=== PATIENT | female | born 1990 | race Caucasian/White ===

== ENCOUNTER 2017-10-05 21:28 | Inpatient (IN) | payer OTHER ==
[~2017-10-05] VITALS: Ht 170.2 cm; Wt 65.8 kg
[2017-10-05 22:08] LABS: ABSOLUTE BASOPHIL COUNT 0 /CUMM (0.0-0.2); ABSOLUTE EOSINOPHIL COUNT 0 /CUMM (0.0-0.7); ABSOLUTE GRANULOCYTE CT 11.3 /CUMM (1.4-6.5); ABSOLUTE LYMPH COUNT 2.2 /CUMM (1.2-3.4); ABSOLUTE MONOCYTE COUNT 0.7 /CUMM (0.10-0.60); BASOPHIL % 0.1 % (0.0-2.0); EOSINOPHIL % 0.2 % (0-5); HEMATOCRIT 39.3 % (37-47); MEAN CORPUSCULAR HGB 31.5 PG (27.0-31.0); MEAN CORPUSCULAR HGB CONC 33.5 G/DL (33.0-37.0); MEAN CORPUSCULAR VOLUME 94.1 FL (81.0-99.0); MEAN PLATELET VOLUME 8.3 FL (7.4-10.4); PLATELET COUNT 244 /CUMM (130-400); RBC DISTRIBUTION WIDTH 13.5 % (11.5-14.5); RED BLOOD CELL CT 4.18 /CUMM (4.20-5.40); WHITE BLOOD CELL COUNT 14.3 /CUMM (4.8-10.8)
[2017-10-05 22:09] LABS: GRANULOCYTE % 79.1 % (42.2-75.2)
--- NOTE | 2017-10-06 00:03 | History & Physical ---
General Information and HPI MD Statement: I have seen and personally examined MARK SIMMONS and documented this H&P. Source of Information: patient, old records Exam Limitations: no limitations History of Present Illness: The patient is a 27 year old at 40 weeks and 0 days gestation who presented with a chief complaint of PAINFUL CTX. No lof / vb. +FM. AP care uncomplicated. GBS neg. Allergies/Medications Allergies: Uncoded Allergies: TREE NUTS (Intermediate, HIVES 06/01/12) Compliance With Home Meds: GOOD Past History studio model History : 1 Para: 0 Last Menstrual Period: 12/29/16 Estimated Delivery Date: 10/05/17 Past studio model History: none Medical History Gastrointestinal: colitis (no meds) PHYSICIAN OFFICE ASSISTANT/Reproductive: irreg menses, conceived w/ clomid Surgical History Pertinent Surgical History: I&D vulvar abscess Past Family/Social History Psychosocial History Smoking Status: Never Smoked Exam & Diagnostic Data Obstetric Exam Wgt Gained During : 25 lb Pelvimetry: adequate Dilation (cm): 8 Effacement (%): 100 Station: 0 Membranes: intact Fluid: unknown Fundal Height (cm): 39 Multiple Gestation? No Contractions: q2-3 #1 - FHR Baseline: 130 Category: 1 Estimated Weight: 3400 Presentation: vtx Patient for Induction? No Physical Exam: nad abd soft nt gravid ext nt no ed Labs Blood Type & Rh: B pos Antibody Screen: neg Hct/Hgb & Platelets #1: 13.5/ 40, 335 Hct/Hgb & Platelets #2: 11.9/ 36.3, 277 Rubella: imm VDRL #1: neg VDRL #2: neg HbsAg: neg HIV #1: neg HIV #2 neg 1 Hr P Group B Strep: neg Initial Ultrasound: 02/24/17 siup 8+1 cwd Anatomy Ultrasound: 05/16/17 nl francis Ultrasound for EFW: 09/22/17 38% Genetic Testing: counsyl wnl Last 24 Hrs of Labs/Ye: Laboratory Tests 10/05/172146: CBC w Diff NO MAN DIFF REQ, RBC 4.18 L, MCV 94.1, MCH 31.5 H, MCHC 33.5, RDW 13.5, MPV 8.3, Gran % 79.1 H, Lymphocytes % 15.4 L, Monocytes % 5.2, Eosinophils % 0.2, Basophils % 0.1, Absolute Granulocytes 11.3 H, Absolute Lymphocytes 2.2, Absolute Monocytes 0.7 H, Absolute Eosinophils 0, Absolute Basophils 0, Urine Color PINK H, Urine Clarity CLDY H, Urine pH 7.0, Ur Specific [place] 1.015, Urine Protein 30 H, Urine Ketones NEG, Urine Nitrite NEG, Urine Bilirubin NEG, Urine Urobilinogen 0.2, Ur Leukocyte Esterase MOD H, Ur Microscopic SEDIMENT EXAMINED, Urine RBC PACKD H, Urine WBC 5-10 H, Ur Epithelial Cells MOD H, Urine Bacteria FEW H, Urine Mucus RARE, Urine Hemoglobin LARGE H, Urine Glucose NEG Assessment/Plan Assessment/Plan: 27yo P0 40 wks active labor, gbs neg, intact, and maternal status reassuring. Admit, expectant mgmt, ANSVD. As Ranked By This Provider Problem List: 1. Core Measures Venous Thromboembolism VTE Risk Factors / No Mechanical VTE Prophylaxis d/t Early Ambulation No VTE Pharm Prophylaxis d/t LowRisk-No Interven Req'd Attending MD Review Statement Attending Statement Attending MD Statement: examined this patient, discussed with family, discussed w/nursing
--- NOTE | 2017-10-06 00:08 | Labor & Delivery Summary ---
Delivery Summary Vaginal Delivery: Vaginal: spontaneous Episiotomy/Lacerations: Episiotomy/Lacerations: lac Type: rt labial Repair: 2-0 wyatt Anesthesia: nesicaine Placenta: Placenta: spontanteous, normal, 3 vessel Anesthesia: none Baby's Weight: 6#6 Apgars - 1 Min: 9 Apgars - 5 Min: 9 Additional Comments: Pt FD/+3 and pushing w/o epidural. Controlled of live female, apg 12/18. Head del over intact perineum from PRASHANTH. Body del w/o difficulty and baby to mom's chest. Cord clamped and cut by dad. Spont cry noted. Bulb suctioned. 3vc plac del spont intact. Rt labial lacs repaired 2-0 wyatt and local. Good hemostasis. Fundus contracted. EBL 250cc. Pt michael well.
[2017-10-06] MEDS ORDERED: IBUPROFEN800 M1 PO (08:34)
[2017-10-06 09:55] LABS: ABSOLUTE BASOPHIL COUNT 0.1 /CUMM (0.0-0.2); ABSOLUTE EOSINOPHIL COUNT 0 /CUMM (0.0-0.7); ABSOLUTE GRANULOCYTE CT 12.1 /CUMM (1.4-6.5); ABSOLUTE LYMPH COUNT 1.7 /CUMM (1.2-3.4); ABSOLUTE MONOCYTE COUNT 0.7 /CUMM (0.10-0.60); BASOPHIL % 0.4 % (0.0-2.0); EOSINOPHIL % 0.1 % (0-5); HEMATOCRIT 36.9 % (37-47); MEAN CORPUSCULAR HGB 32.2 PG (27.0-31.0); MEAN CORPUSCULAR HGB CONC 34.5 G/DL (33.0-37.0); MEAN CORPUSCULAR VOLUME 93.3 FL (81.0-99.0); MEAN PLATELET VOLUME 8.2 FL (7.4-10.4); PLATELET COUNT 197 /CUMM (130-400); RBC DISTRIBUTION WIDTH 13.2 % (11.5-14.5); RED BLOOD CELL CT 3.95 /CUMM (4.20-5.40); WHITE BLOOD CELL COUNT 14.6 /CUMM (4.8-10.8)
[2017-10-06 10:21] LABS: GRANULOCYTE % 83.1 % (42.2-75.2)
--- NOTE | 2017-10-06 14:32 | PN- Post Delivery/GYN ---
Subjective Subjective: Feeling well . Denies pain or cramps. Mild lochia rubra. +void. Successful latching, nursing today. Review of Systems: No [place], fever, dizziness, congestion, sore throat, blurred vision, breast pain, cough, SOB, palpitations, chest pain, abd. pain, N&V, diarrhea, dysuria, urgency to void, asymmetrical or unusual edema, numbness, or sadness. Objective Last 24 Hrs of Vital Signs/I&O Intake & Output 10/06 1600 10/06 0800 10/06 0000 Intake Total Output Total Balance Patient 145 lb Weight Physical Exam: Skin - warm and dry Neck - supple Breasts - not engorged Abd - soft, NT, no CVAT Fundus - firm, NT Perineum - dry Extr - benign Current Medications: Current Medications Sig/Jeremiah Start time Last Medication Dose Route Stop Time Status Admin Acetaminophen 650 MG Q4P PRN 10/06 0015 AC PO Chloroprocaine HCl 30 ML ONCE ONE 10/06 0015 DC 10/06 SC 10/06 0016 0107 Chloroprocaine HCl 30 ML .STK-MED ONE 10/05 2227 DC IV 10/05 2228 Docusate Sodium 100 MG BID PRN 10/06 0015 AC PO Ibuprofen 800 MG Q6P PRN 10/06 0015 AC 10/06 PO 1227 Lactated Ringer's 1,000 ML Q8H 10/05 2145 AC 10/05 IV 2259 Oxycodone/ 1 TAB Q3P PRN 10/06 0015 AC Acetaminophen PO Oxytocin 20 UNITS Q5H 10/06 0015 DC 10/05 Lactated Ringer's 1,000 ML IV 10/06 0514 2325 Oxytocin 20 UNITS .STK-MED ONE 10/05 2226 DC IV 10/05 2227 Senna 374 MG AT BEDTIME NEED.. 10/06 0015 AC PO Last 24 Hrs of Labs/Ye: Laboratory Tests 10/06/17 0925: CBC w Diff NO MAN DIFF REQ, RBC 3.95 L, MCV 93.3, MCH 32.2 H, MCHC 34.5, RDW 13.2, MPV 8.2, Gran % 83.1 H, Lymphocytes % 11.3 L, Monocytes % 5.1, Eosinophils % 0.1, Basophils % 0.4, Absolute Granulocytes 12.1 H, Absolute Lymphocytes 1.7, Absolute Monocytes 0.7 H, Absolute Eosinophils 0, Absolute Basophils 0.1 10/05/172146: CBC w Diff NO MAN DIFF REQ, RBC 4.18 L, MCV 94.1, MCH 31.5 H, MCHC 33.5, RDW 13.5, MPV 8.3, Gran % 79.1 H, Lymphocytes % 15.4 L, Monocytes % 5.2, Eosinophils % 0.2, Basophils % 0.1, Absolute Granulocytes 11.3 H, Absolute Lymphocytes 2.2, Absolute Monocytes 0.7 H, Absolute Eosinophils 0, Absolute Basophils 0, Urine Color PINK H, Urine Clarity CLDY H, Urine pH 7.0, Ur Specific [place] 1.015, Urine Protein 30 H, Urine Ketones NEG, Urine Nitrite NEG, Urine Bilirubin NEG, Urine Urobilinogen 0.2, Ur Leukocyte Esterase MOD H, Ur Microscopic SEDIMENT EXAMINED, Urine RBC PACKD H, Urine WBC 5-10 H, Ur Epithelial Cells MOD H, Urine Bacteria FEW H, Urine Mucus RARE, Urine Hemoglobin LARGE H, Urine Glucose NEG Assessment/Plan Assessment/Plan Recovering well s/p rapid delivery for a primipara. Continue care. Anticipate discharge in am. Problem List: 1. state 2. Mother currently breast-feeding Attending MD Review Statement Attending Statement Attending MD Statement: examined this patient, discussed with family, reviewed EMR data (avail)
--- NOTE | 2017-10-07 08:56 | PN- OBGYN ---
Surgical Brief Attending Note Brief Attending Note: PPD#2 pt is doing well, o complaints, tolerate diet, void without difficulties. ambulating well PE: VSS CV RRR lungs CTA B/L Abdomen: soft, nontender, uterus firm , fundus below umbilicus. Ext: DCT (-) A/P: 27yo, s/p , PPD #2 1. encourage ambualtion and 2. RT PP care 3. will d/c home, f/u in office in 2 wks and 6 wks. discharge instructions given.
== END 2017-10-07 11:00 | DRG 775 ==
LOC: CBCO 21:28 → GNO 21:43
PROVIDERS: Obstetrics & Gynecology
PROC: 10E0XZZ Delivery of Products of Conception, External Approach (ICD-10-PCS; principal; 2017-10-05)
DX: O70.0 First degree perineal laceration during delivery (principal); Z3A.40 40 weeks gestation of pregnancy; Z37.0 Single live birth
CPT/HCPCS: GNOP; GNOS; 81001; J7120